=== PATIENT | male | born 1945 | race Caucasian/White ===

== ENCOUNTER → 2016-07-23 11:53 | Outpatient (CLI) | payer MEDICARE, OTHER ==
[2016-04-24 15:29] VITALS: BMI 48.8
[~2016-07-23 11:53] MED LIST: ACETAMINOPHEN500 M1 PO; ADIPEX-P37.5 M1 PO; ADVAIR HFA 230-12 GM INH; AMOXIL875 MG PO; ASCORBIC ACID500 MG PO; ASPIRIN EC81 M1 PO; ASPIRIN EC81 MG PO; BAYER CHEWABLE81 MG PO; BENADRYL INJ50 MG/ML IV; BENADRYL25 MG PO; BENICAR HCT 40-1 TA1 PO; BENICAR20 MG PO; BENICAR40 MG PO; CEFAZOLIN IV; CHLORASEPTIC177 ML TOPICAL; COLACE100 MG PO; CORDARONE200 MG PO; CRESTOR10 MG PO; CRESTOR20 MG PO; DULCOLAX10 MG/SUPP RC; ELIQUIS2.5 MG PO; HCTZ25 MG PO; HEMOCYTE PLUS1 CAP; HEMOCYTE PLUS1 CAP PO; HYDROCHLOROTHIA25 MG PO; HYDROCODONE-APA1 TAB PO; LEVAQUIN PREMI750 MG IV; LOPRESSOR25 MG PO; LYRICA75 MG PO; METANX; MIRALAX17 GM PO; MOBIC PO; MOBIC7.5 MG PO; MULTI-DAY VITAM1 TAB PO; MULTIPLE VITAMI1 TA1 PO; NEXIUM40 MG PO; NORCO 10/325 TA1 TA1 PO; OSTEO BI-FLEX; OSTEO BI-FLEX1 EAC1 PO; PERCOCET 10/3251 TA1 PO; PERCOCET 5-3251 TAB PO; POTASSIUM99 M1; PROAIR HFA8.5 GM INH; SALINE FLUSH10 ML IV; SENOKOT-S TABLE1 TAB PO; SINGULAIR10 MG PO; SUPER B COMPLE150 MG PO; SYNTHROID25 MCG PO; TUMS500 MG PO; VANCOMYCIN H1 G/VIA1 IV; VIBRAMYCIN 100100 MG PO; VITAMIN B COMPL1 TA1 PO; VYBRID; ZOFRAN4 MG PO; [UNRECOGNIZED DRUG - OTHER] IV
[2016-07-23 12:21] LABS: WBC 10.3 10x3/uL (4.8-10.8)
[2016-07-23 13:35] LABS: ERYTHROCYTE SEDIMENTATION RATE 41 mm/hr (0-20)
== END | disposition home or self-care (01) ==
LOC: D.LAB 11:53
PROVIDERS: Orthopaedic Surgery
DX: T84.84XA Pain due to internal orthopedic prosthetic devices, implants and grafts, initial encounter (principal)

== ENCOUNTER 2016-08-01 08:09 | Day surgery (SDC) | payer MEDICARE, OTHER ==
[~2016-08-01] VITALS: Ht 177.8 cm; Wt 145.1 kg
[~2016-08-01 08:09] MED LIST changes: -HYDROCODONE-APA1 TAB PO; -VYBRID
[2016-08-01 09:17] LABS: HEMOGLOBIN 11.2 g/dL (13.5-17.5); MCH 27.7 pg (26.0-34.0); MCHC 31.1 g/dL (31.0-37.0); MCV 88.9 fL (80.0-100.0); MEAN PLATELET VOLUME 10.3 fL (7.4-10.4); RBC 4.05 10x6/uL (4.20-6.10); RDW 13.9 % (11.5-14.5); WBC 7.6 10x3/uL (4.8-10.8)
[2016-08-01] MEDS ORDERED: HYDROCODONE-APA1 TAB PO (09:29)
[2016-08-01] MEDS ORDERED: VYBRID (09:30)
[2016-08-01 09:31] VITALS: BP 117/55; Ht 177.8 cm; Wt 145.1 kg
[2016-08-01 09:34] LABS: ANION GAP 11.9 mmol/L (8-16); CARBON DIOXIDE 28.2 mmol/L (21.0-32.0); CREATININE - SERUM 1.2 mg/dL (0.6-1.3); POTASSIUM - SERUM 4.1 mmol/L (3.5-5.1)
[2016-08-01 13:13] LABS: LYMPH - BF 3 %; MACROPHAGES BF 2 %; NEUT - BF 95 %
[2016-08-01 13:38] LABS: PROTEIN - BODY FLUID 5.1 G/DL
--- NOTE | 2016-08-01 14:09 | NUR ---
1145 IV DC WITH CATHER TIP INTACT
--- NOTE | 2016-08-02 14:00 | OP ---
PATIENT NAME: GRECIA MARTINEZ MEDICAL RECORD: [id number] :49 LOCATION:[facility] ADMISSION DATE: SURGEON: PARMJIT MCKINLEY MD DATE OF OPERATION: 08/01/2016 PREOPERATIVE DIAGNOSIS: Painful swollen right knee, status post total knee arthroplasty. POSTOPERATIVE DIAGNOSIS: Painful swollen right knee, status post total knee arthroplasty. PROCEDURE: Aspiration of the right knee under fluoroscopy and TIVA anesthesia. SURGEON: Parmjit Mckinley MD. ANESTHESIA: TIVA. INTRAOPERATIVE COMPLICATIONS: None. OPERATIVE SUMMARY IN DETAIL: After obtaining the appropriate orthopedic surgery consent, as well as anesthetic consultation, evaluation and clearance, the patient was brought to the operating room and placed on the operating table in supine position. After adequate TIVA anesthesia was administered, the right knee was prepped and draped in a routine sterile fashion. An 18-gauge needle was directed into the superior lateral aspect of the knee under fluoroscopy. Approximately 30 mL of cloudy synovial fluid returned. This was then sent for Gram stain, aerobic and anaerobic cultures as well as synovial fluid analysis. Bandage was applied. The patient returned to outpatient in stable condition. TRANSINT:[id number] Voice Confirmation ID: [id number] DOCUMENT ID: [id number] PARMJIT MCKINLEY MD at 1400 CC: [id number] DICTATION DATE: 08/01/16 111 GARAGE DOOR TECHNICIAN: 08/01/16 1713 [facility] 08/01/16 [facility] [address] [place] [address]
== END 2016-08-01 13:00 | disposition home or self-care (01) ==
LOC: D.OPS 08:09
PROVIDERS: Anesthesiology; Orthopaedic Surgery
DX: M25.461 Effusion, right knee (principal); M25.561 Pain in right knee; Z96.651 Presence of right artificial knee joint

== ENCOUNTER 2017-05-24 12:04 | Inpatient (IN) | payer MEDICARE, OTHER ==
[~2017-05-24] VITALS: Ht 177.8 cm; Wt 155.6 kg
[~2017-05-24 12:04] MED LIST changes: +HYDROCODONE-APA1 TAB PO; +VYBRID
[2017-05-24 13:05] LABS: BASOPHILS 0.1 % (0-2); EOSINOPHILS 0.8 % (0-7); HEMATOCRIT 39.1 % (42.0-54.0); HEMOGLOBIN 12.2 g/dL (13.5-17.5); IMMATURE GRANULOCYTES 0.2 % (0-5); MCH 28.1 pg (26.0-34.0); MCHC 31.2 g/dL (31.0-37.0); MCV 90.1 fL (80.0-100.0); MEAN PLATELET VOLUME 9.4 fL (7.4-10.4); MONOCYTES 6.7 % (2-11); NEUTROPHILS 82.2 % (40-80); RBC 4.34 10x6/uL (4.20-6.10); RDW 13.9 % (11.5-14.5); WBC 10.6 10x3/uL (4.8-10.8)
[2017-05-24 13:16] LABS: ALBUMIN 3.5 g/dL (3.4-5.0); ANION GAP 10.3 mmol/L (8-16); BILIRUBIN - TOTAL 1.43 mg/dL (0.2-1.3); CALCIUM 9.2 mg/dL (8.5-10.1); CARBON DIOXIDE 30.4 mmol/L (21.0-32.0); CREATININE - SERUM 1.2 mg/dL (0.6-1.3); POTASSIUM - SERUM 3.7 mmol/L (3.5-5.1); PROTEIN - SERUM 8.1 g/dL (6.4-8.2)
[2017-05-24 13:17] LABS: PLATELET COUNT 301 10x3/uL (130-400)
[2017-05-24 13:20] LABS: TROPONIN-I 0.037 ng/mL (0.000-0.060)
[2017-05-24 13:59] LABS: AMYLASE - SERUM 28 U/L (25-115); LIPASE 121 U/L (73-393); PRO BNP 3878 pg/mL (0-125)
--- NOTE | 2017-05-24 15:32 | NUR ---
RECEIVED FROM FROM NILES IN ER. STATES PATIENT HAS NOT BEEN GIVEN ANY MEDS IN THE ER & VS ARE STABLE. ADVISED PTS ROOM IS READY. WILL SEND PATIENT TO FLOOR.
--- NOTE | 2017-05-24 16:05 | NUR ---
RECEIVED PATIENT VIA STRETCHER FROM ER. TRANSFERED TO BEDSIDE CHAIR. HE IS ORIENTED AND ALERT. THERE IS A 20G IV IN HIS LEFT AC, SALINE LOCKED WITH DRESSING INTACT. ADMITTING HISTORY DONE WITH PATIENT. VERIFIED MED LIST WITH PATIENT. VS STABLE AT THIS TIME. PUT PATIENT ON TELEMETRY. ORDERED MEDS GIVEN; LASIX & NITRO. CALL LIGHT IN REACH. WILL CONTINUE TO MONITOR. CPOC.
[2017-05-24 16:53] VITALS: BMI 48.8
[2017-05-24] MEDS ORDERED: PROAIR HFA8.5 GM INH (16:59)
--- NOTE | 2017-05-24 17:00 | NUR ---
PATIENT SITTING UP IN CHAIR. ADMISSION ASSESSMENT DONE. PATIENT DENIES ANY NEEDS OR PAIN AT THIS TIME. CPOC
--- NOTE | 2017-05-24 18:40 | NUR ---
EVENING ROUNDS MADE. PATIENT SITTING IN CHAIR AT BEDSIDE. DENIES ANY NEEDS AT THIS TIME. CALL LIGHT IN REACH. INSTRUCTED TO USE CALL LIGHT IF NEEDED. CPOC.
[2017-05-24 21:02] VITALS: BP 110/74
--- NOTE | 2017-05-24 22:16 | NUR ---
INITIAL ROUNDS COMPLETED 1T 1920 HRS. PT DENIED ANY DISCOMFORT PT SITTING IN THE RECLINER. ASSESSMENT COMPELTEDA T 2020 HRS. VSS. SR PER CM HR 74. IV TO RAC SL. LUNGS DIMINISHED IN BASES BILAT. 2-3+ PITTING EDEMA TO BILAT KNEES NOTED. PT DENIED ANY DISCOMFORT. PT CURRENTLY WATCHING TV IN RECLINES. DENIES ANY DISCOMFORT. WILL CONTINUE TO MONITOR. CALL LIGHT WITHIN REACH.
--- NOTE | 2017-05-24 23:51 | NUR ---
BP IN 170'S. PT STATES HAS BAD STERN. NITRO PASTE REMOVED. WILL REASESS IN 30 MINUTES.
[2017-05-25 00:19] VITALS: BP 175/79
--- NOTE | 2017-05-25 00:25 | NUR ---
PT RESTING WITH EYES CLOSED. RESP EVEN AND REGULAR. SR UP X2, CALL LIGHT WITHIN REACH.
--- NOTE | 2017-05-25 02:15 | NUR ---
PT RESTING WITH EYES CLOSED. RESP EVEN AND REGULAR. SR UP X2, CALL LIGHT WITHIN REACH.
--- NOTE | 2017-05-25 04:45 | NUR ---
PT AWAKE; DENIES ANY DISCOMFORT. WILL CONTINUE TO MONITOR.
[2017-05-25 05:16] VITALS: BP 162/70
--- NOTE | 2017-05-25 06:36 | NUR ---
VSS THIS AM. PT DENIES ANY DISCOMFORT. NEEDS MET; WILL CONTINUE TO MONITOR.
--- NOTE | 2017-05-25 07:15 | NUR ---
REPORT RECEIVED. MORINING ROUNDS MADE. PATIENT RESTING IN BED. EMPTIED 700ML OF LIGHT YELLOW URINE FROM URINAL. PT VOIDED AN ADDITIONAL 750ML OF LIGHT YELLOW URINE. DENIES ANY NEEDS AT THIS TIME. VSS. WILL CONTINUE TO MONITOR. CPOC.
[2017-05-25 08:43] LABS: BASOPHILS 0.1 % (0-2); EOSINOPHILS 2.1 % (0-7); HEMATOCRIT 38.1 % (42.0-54.0); HEMOGLOBIN 11.9 g/dL (13.5-17.5); IMMATURE GRANULOCYTES 0.2 % (0-5); LYMPHOCYTES 13.1 % (15-50); MCH 28.3 pg (26.0-34.0); MCHC 31.2 g/dL (31.0-37.0); MCV 90.5 fL (80.0-100.0); MEAN PLATELET VOLUME 9.5 fL (7.4-10.4); MONOCYTES 9.1 % (2-11); NEUTROPHILS 75.4 % (40-80); PLATELET COUNT 296 10x3/uL (130-400); RBC 4.21 10x6/uL (4.20-6.10); RDW 14.1 % (11.5-14.5); WBC 8.7 10x3/uL (4.8-10.8)
[2017-05-25 08:49] LABS: ANION GAP 12.2 mmol/L (8-16); CARBON DIOXIDE 32.8 mmol/L (21.0-32.0); CREATININE - SERUM 1.3 mg/dL (0.6-1.3)
--- NOTE | 2017-05-25 11:16 | NUR ---
PATIENT IS RESTING, DENIES ANY NEEDS. BED LOW AND LOCKED. CPOC
[2017-05-25 11:42] VITALS: BP 148/75
--- NOTE | 2017-05-25 14:26 | NUR ---
PATIENT STANDING AT BEDSIDE. ASKED HOW HE WAS DOING, STATES "I'M BUSY". INFORMED I HAD HIS LASIX, ASKED IF I COULD COME BACK IN "A LITTLE BIT". TOLD HIM THAT WAS NOT A PROBLEM. WILL CHECK BACK WITH HIM SHORTLY. CPOC.
--- NOTE | 2017-05-25 15:30 | NUR ---
SPOKE WITH DR. ADORNO AND ADVISED PATIENT NEEDS HIS HOME MEDS RESTARTED. VOICED UNDERSTANDING.
[2017-05-25 16:07] VITALS: BP 149/66
--- NOTE | 2017-05-25 19:17 | NUR ---
EVENING ROUNDS MADE. PATIENT SITTING IN CHAIR AT BEDSIDE. DENIES ANY NEEDS AT THIS TIME. CALL LIGHT IN REACH. CPOC.
[2017-05-25 20:00] VITALS: BP 125/68
--- NOTE | 2017-05-25 21:44 | NUR ---
INITIAL ROUNDS COMPLETED AT 1920 HRS. PT DENIED ANY DISCOMFORT. ASSESSMENT COMPELTED AT 1954 HRS. VSS. SR PER CM HR 72. LUNGS DIMINISHED IN BASES BILAT. 2+ EDEMA NOTED TO KNEES. PM MEDS GIVEN PER ORDERS. PT CURRENTLY WATCHING TV. WILL CONTINUE TO MONITOR. SR UP X2, CALL LIGHT WITHIN REACH.
[2017-05-26] VITALS: BP 152/63
--- NOTE | 2017-05-26 00:02 | NUR ---
PT AWAKE; DENIES ANY DISCOMFORT. WILL CONTINUE TO MONITOR.
--- NOTE | 2017-05-26 02:48 | NUR ---
PT RESTING WITH EYES CLOSED. RESP EVEN AND REGULAR. SR UP X2, CALL LIGHT WITHIN REACH.
[2017-05-26 04:00] VITALS: BP 157/69
--- NOTE | 2017-05-26 04:26 | NUR ---
PT RESTING WITH EYES CLOSED. RESP EVEN AND REGULAR. SR UP X2,CALL LIGHT WITHIN REACH.
[2017-05-26 06:07] LABS: BASOPHILS 0.1 % (0-2); EOSINOPHILS 2.3 % (0-7); HEMATOCRIT 39.8 % (42.0-54.0); HEMOGLOBIN 12.3 g/dL (13.5-17.5); IMMATURE GRANULOCYTES 0.2 % (0-5); MCH 27.8 pg (26.0-34.0); MCHC 30.9 g/dL (31.0-37.0); MONOCYTES 9.9 % (2-11); NEUTROPHILS 73.5 % (40-80); PLATELET COUNT 319 10x3/uL (130-400); RBC 4.42 10x6/uL (4.20-6.10); RDW 14.1 % (11.5-14.5); WBC 9.8 10x3/uL (4.8-10.8)
--- NOTE | 2017-05-26 06:24 | NUR ---
VSS THROUGHOUT NIGHT. SR PER CM. PT DENIED ANY DISCOMFORT. NEEDS MET; WILL CONTINUE TO MONITOR.
[2017-05-26 06:36] LABS: ALBUMIN 3.3 g/dL (3.4-5.0); ANION GAP 9.9 mmol/L (8-16); BILIRUBIN - TOTAL 1.4 mg/dL (0.2-1.3); CALCIUM 9.6 mg/dL (8.5-10.1); CARBON DIOXIDE 34.6 mmol/L (21.0-32.0); CREATININE - SERUM 1.2 mg/dL (0.6-1.3); POTASSIUM - SERUM 3.5 mmol/L (3.5-5.1); PROTEIN - SERUM 7.6 g/dL (6.4-8.2)
--- NOTE | 2017-05-26 07:15 | NUR ---
RECIEVED REPORT ON PATIENT. PATIENT IS SLEEPING AT THIS TIME, NAD NOTED AT THIS TIME, CHEST RISES AND FALLS EQUALLY. PATIENT HAS A R AC IV THAT IS SL AT THIS TIME. BED IS LOW AND LOCKED, CALL LIGHT IN REACH. CPOC
--- NOTE | 2017-05-26 08:17 | CN ---
PATIENT NAME:GRECIA MARTINEZ MEDICAL RECORD: [id number] : 49 LOCATION:[facility].2132 ADMIT DATE: 05/25/17 ACCOUNT: [id number] CONSULTING PHYSICIAN: KLEVER COFFEY MD REFERRING PHYSICIAN: SHYLA ADORNO MD DATE OF CONSULTATION: 05/25/2017 HISTORY OF PRESENT ILLNESS: A 71-year-old gentleman with cardiovascular history. He has history of aortic valve disease, status post AVR, tissue type back in 2012. He has history of hypertension. He has baseline dyspnea on exertion, reports 2-3 day history of progressive dyspnea on exertion. He had been at [employer], perhaps dietary indiscretion. He has been taking his medications. He presented to the ER. He had elevated BNP. Last echocardiographic study one month ago showed normal functioning prosthetic valve, normal LV function, responded nicely to diuretics. We are asked to see him concerning his cardiovascular status. PAST MEDICAL HISTORY: 1. History of hypertension. 2. Dyslipidemia. 3. Hypothyroidism, on replacement. 4. Gastroesophageal reflux disease. ALLERGIES: POLLEN EXTRACTS, DOG DANDER. No drug allergies. MEDICATIONS: Include; 1. Lopressor 50 b.i.d. 2. Benicar 20 daily. 3. Crestor 10 daily. 4. Aspirin 81 daily. 5. Lyrica 75 daily. 6. Nexium 40 daily. 7. Synthroid 25 mcg daily. SOCIAL HISTORY: He is a nonsmoker. He is able to take care of his ADLs, stays quite active. No set exercise program. REVIEW OF SYSTEMS: The patient reports easy bruising but reports no swollen glands. The patient reports no fever, no night sweats, no significant weight gain, no significant weight loss. No significant exercise tolerance. The patient reports no dry eyes, no irritation, no vision change. Patient reports no difficulty hearing and no ear pain. Patient reports no frequent nose bleeds or nose and sinus problems. Patient reports on arm pain on exertion. No shortness of breath while lying down. No history of heart murmur. Patient reports no cough, no wheezing or coughing up blood. Patient reports no abdominal pain, no vomiting. Normal appetite. No diarrhea and not vomiting blood. No nausea and no constipation. Patient reports no incontinence. No difficulty urinating. No hematuria. No increased frequency. Patient reports no muscle aches. No weakness, no arthralgias, no back pain. No swelling of the extremities. Patient reports no abnormal mole, no jaundice, no rashes. Reports no loss of consciousness. No weakness and no numbness. No seizures, dizziness, or headaches. The patient reports no depression, no sleep disturbance, feeling safe in a relationship and no alcohol abuse. Patient reports on fatigue. Reports no runny nose or sinus pressure. No itching, no hives, and no frequent sneezing. CONSULT REPORT [id number] GRECIA MARTINEZ PHYSICAL EXAMINATION: GENERAL: Pleasant gentleman, in no acute distress. VITAL SIGNS: Blood pressure 160/70, pulse 89 and regular. HEENT: Normocephalic, atraumatic. NECK: No bruits noted. HEART: Regular, probable S4 gallop is noted. LUNGS: Prolonged expiratory phase, few wheezes. ABDOMEN: Soft, nontender. EXTREMITIES: A 1+ edema, 1+ pulses. NEUROLOGIC: Grossly intact. DIAGNOSTIC DATA: ECG shows LVH with secondary ST-T changes. IMPRESSION: Volume overload. This may be secondary to dietary indiscretion at [employer], etc. I agree with current management. Given infrequent episodes of volume overload, might could even treat this with p.r.n. diuretic currently since LV function remains normal. Further recommendations based on above. TRANSINT:[id number] Voice Confirmation ID: [id number] DOCUMENT ID: [id number] KLEVER COFFEY MD at 0817 CC: [id number] DICTATION DATE: 05/25/17 0938 BUSINESS AGENT: 05/25/17 1222 ADM IN [place] [id number] [place] [id number]
[2017-05-26 08:18] VITALS: BP 160/72
--- NOTE | 2017-05-26 09:15 | NUR ---
MORNING MEDICATIONS GIVEN, NO ISSUES. PATIENT SITTING IN CHAIR. CPOC
--- NOTE | 2017-05-26 11:15 | NUR ---
PATIENT RESTING, DENIES ANY NEEDS OR PAIN AT THIS TIME. CPOC
[2017-05-26 12:27] VITALS: BP 145/65
[2017-05-26 13:24] VITALS: Ht 177.8 cm; Wt 155.6 kg
[2017-05-26] MEDS ORDERED: HYDROCHLOROTHIA25 MG PO (14:09)
--- NOTE | 2017-05-26 14:11 | NUR ---
PATIENT SITTING UP IN CHAIR, RESTING DENIES ANY NEEDS. WAITING ON DC PAPERWORK. CPOC
--- NOTE | 2017-05-26 15:24 | NUR ---
PATIENT RESTING, AROUSES TO VOICE. DENIES ANY NEEDS. CPOC
--- NOTE | 2017-05-26 15:53 | NUR ---
Patient Name: GRECIA MARTINEZ Admission Status: ER Accout number: [id number] Admission Date: 05-25-2017 : 1945 Admission Diagnosis: Attending: SHYLA ADORNO Current LOS: 1 Anticipated DC Date: 05-26-2017 Planned Disposition: Home Primary Insurance: MEDICARE A & B Discharge Planning Comments: * Is the patient Alert and Oriented? Yes 0 * How many steps to enter\\exit or inside your home? 2-O / 13-I 0 * PCP DR. JUNIOR 0 * Pharmacy [facility] MA[facility] ORDER 0 * Preadmission Environment Home with Family 0 * ADLs Independent 0 * Equipment Cane Walker Wheelchair 0 * Other Equipment NO MEDICAL EQUIPMENT PROVIDER PREFERENCE 0 * List name and contact numbers for known caregivers / representatives who currently or will assist patient after discharge: LISANDRO MARTINEZ, SPOUSE, 0 * Community resources currently utilized None 0 * Please name any agencies selected above. NONE 0 * Additional services required to return to the preadmission environment? No 0 * Can the patient safely return to the preadmission environment? Yes 0 * Has this patient been hospitalized within the prior 30 days at any hospital? No 0 CM MET WITH PT IN ROOM TO DISCUSS DISCHARGE PLANNING AND NEEDS. PT REPORTS LIVING AT HOME INDEPENDENTLY WITH SPOUSE. PT HAS A CANE THAT HE USES AND A WALKER AND WHEELCHAIR THAT HE DOES NOT USE. PT HAS NO MEDICAL EQUIPMENT PROVIDER PREFERENCE. PT HAS NO OUTSIDE SERVICES ASSISTING IN THE HOME. CM DISCUSSED AVAILABILITY OF HOME HEALTH, REHAB SERVICES AND MEDICAL EQUIPMENT. PT PLANS TO GO TO THE "[facility]" IMMEDIATELY AFTER GETTING HOME; PT DENIES DISCHARGE NEEDS, REPORTS HIS SPOUSE WILL PICK HIM UP FOR DISCHARGE HOME. IMPORTANT MESSAGE FROM MEDICARE PROVIDED AND EXPLAINED. Enterostomal Nurse: Ziggy Vega
--- NOTE | 2017-05-26 16:30 | NUR ---
patient given dc instructions. iv dc with cath tip intact. patient denies any questions. patient ride here. patient gone for dc
[2017-05-26 16:38] VITALS: BP 134/76
== END 2017-05-26 17:01 | disposition home or self-care (01) | DRG 292 ==
LOC: D.ER 12:04 → OBSVTIME 14:33 → D.M2 14:33
PROVIDERS: Family Medicine; ADMIT Family Medicine
DX: I11.0 Hypertensive heart disease with heart failure (principal); Z68.42 Body mass index [BMI] 45.0-49.9, adult; I50.9 Heart failure, unspecified; E78.5 Hyperlipidemia, unspecified; E03.9 Hypothyroidism, unspecified; K21.9 Gastro-esophageal reflux disease without esophagitis; G47.33 Obstructive sleep apnea (adult) (pediatric); I25.10 Atherosclerotic heart disease of native coronary artery without angina pectoris; D64.9 Anemia, unspecified; Z95.2 Presence of prosthetic heart valve; Z87.891 Personal history of nicotine dependence; E66.01 Morbid (severe) obesity due to excess calories

== ENCOUNTER 2017-07-04 06:00 | Outpatient (CLI) | payer MEDICARE, OTHER ==
[2017-05-26 13:24] VITALS: BMI 49.2
[2017-07-04 12:58] LABS: HEMATOCRIT 40.5 % (42.0-54.0); HEMOGLOBIN 12.5 g/dL (13.5-17.5); MCH 27.5 pg (26.0-34.0); MCHC 30.9 g/dL (31.0-37.0); MCV 89.2 fL (80.0-100.0); MEAN PLATELET VOLUME 9.9 fL (7.4-10.4); RBC 4.54 10x6/uL (4.20-6.10); RDW 14.2 % (11.5-14.5)
== END 2017-07-04 23:59 | disposition home or self-care (01) ==
LOC: D.OPS 06:00 → EDSTATUS 07-07 09:00 → D.PAN 07-07 09:00 → D.OPS 07-07 09:00
PROVIDERS: Anesthesiology
DX: T84.84XA Pain due to internal orthopedic prosthetic devices, implants and grafts, initial encounter (principal); Z01.810 Encounter for preprocedural cardiovascular examination; Z01.811 Encounter for preprocedural respiratory examination; Z01.812 Encounter for preprocedural laboratory examination; Z53.9 Procedure and treatment not carried out, unspecified reason

== ENCOUNTER 2017-07-17 06:45 | Day surgery (SDC) | payer MEDICARE, OTHER ==
[~2017-07-17] VITALS: Ht 177.8 cm; Wt 147.0 kg
--- NOTE | ~2017-07-17 | OP ---
PATIENT NAME: GRECIA ESPINAL MEDICAL RECORD: [id number] :49 LOCATION:[facility] ADMISSION DATE: SURGEON: PARMJIT MCKINLEY MD DATE OF OPERATION: 07/17/2017 DATE OF OPERATION: 07/17/2017 PREOPERATIVE DIAGNOSIS: Painful total knee arthroplasty of the right. POSTOPERATIVE DIAGNOSIS: Painful total knee arthroplasty of the right. PROCEDURE: Arthroscopic debridement, synovectomy with aspiration. SURGEON: Parmjit Mckinley MD ANESTHESIA: General. INTRAOPERATIVE COMPLICATIONS: None. SUMMARY OF PATHOLOGIC FINDINGS: The patient again had this arthroscopy as his last arthroscopy was found to have substantial synovitis, did not appear to be infectious. INDICATIONS: Mr. Espinal is a 71-year-old gentleman who underwent total knee arthroplasty which subsequently got infected. After 6 weeks of antibiotic spacer, his knee was replanted with a revision total knee arthroplasty. Approximately 2 years after that, he came in with severe significant pain, the decision at that time was to do arthroscopy, synovectomy and check aspiration. At his index arthroscopy nothing ever grew and the patient did extremely well for approximately 2 years. He presented back with swelling and pain again. Again, synovectomy was performed and cultures were taken. OPERATIVE SUMMARY IN DETAIL: After obtaining the appropriate preoperative orthopedic surgery consent as well as anesthetic consultation, evaluation, and clearance, the patient was brought to the operating room and placed on the operating table in supine position. After adequate general laryngeal mask airway was administered, tourniquet was placed about the proximal aspect of the right lower extremity. Right lower extremity was then prepped and draped in the routine sterile fashion. The leg was elevated and exsanguinated, tourniquet inflated to 350 mmHg. Routine inferolateral portal was established followed by superolateral portal and inferomedial portal. Diagnostic arthroscopy at the end showed substantial synovitis. The synovial fluid was slightly turbid. This was sent for synovial fluid analysis as well as Gram-stain, aerobic and anaerobic culture. At this point, a 5.0 resector was utilized to perform a synovectomy in the popliteal recess, medial and lateral gutters as well as circumferentially about the pelvis. All areas of synovitis were removed and then copious amounts of water simply 12 liters in total were irrigated through the knee while slightly flexing and extending the knee for a good irrigation. Having completed this, arthroscopy portals were closed in routine interrupted fashion using 4-0 Prolene. Tourniquet was deflated. Please note, the knee was insufflated with 30 cc of 0.25% Marcaine plain. Sterile dressings were applied. The patient was awakened and taken to the recovery room in stable condition. All final needle and sponge counts were correct. TRANSINT:[id number] Voice Confirmation ID: [id number] DOCUMENT ID: [id number] OPERATIVE REPORT [id number] GRECIA ESPINAL MD, PARMJIT MYERS at 1436 CC: [id number] DICTATION DATE: 07/17/17 0947 DIRECTOR OF GUIDANCE: 07/17/17 1228 [facility] 07/17/17 [place] [address] [place] [address]
[2017-07-17] MEDS ORDERED: VIIBRYD20 MG PO (07:53)
[2017-07-17 07:57] VITALS: BP 128/55; Ht 177.8 cm; Wt 147.0 kg
[2017-07-17] MEDS ORDERED: PERCOCET 10/3251 TA1 PO (09:38)
== END 2017-07-17 11:30 | disposition home or self-care (01) ==
LOC: D.OPS 06:45 → D.PAN 10:45 → D.OPS 10:45
DX: M25.561 Pain in right knee (principal); Z96.659 Presence of unspecified artificial knee joint; J45.909 Unspecified asthma, uncomplicated; I10 Essential (primary) hypertension; E03.9 Hypothyroidism, unspecified; K21.9 Gastro-esophageal reflux disease without esophagitis; E66.01 Morbid (severe) obesity due to excess calories; Z68.42 Body mass index [BMI] 45.0-49.9, adult

== ENCOUNTER → 2017-08-14 07:41 | Outpatient (CLI) | payer MEDICARE, OTHER ==
[2017-07-17 07:57] VITALS: BMI 46.5
[~2017-08-14 07:41] MED LIST changes: +VIIBRYD20 MG PO
== END | disposition home or self-care (01) ==
LOC: D.NM 07:41
DX: M25.561 Pain in right knee (principal)

== ENCOUNTER → 2017-09-11 06:47 | Outpatient (CLI) | payer MEDICARE, OTHER ==
[2017-07-17 07:57] VITALS: BMI 46.5
== END | disposition home or self-care (01) ==
LOC: D.NM 06:47
DX: Z96.659 Presence of unspecified artificial knee joint (principal)

== ENCOUNTER → 2017-11-24 17:49 | Outpatient (CLI) | payer MEDICARE, OTHER ==
[2017-07-17 07:57] VITALS: BMI 46.5
[2017-11-24 18:09] LABS: BASOPHILS 0.3 % (0-2); EOSINOPHILS 1.8 % (0-7); HEMOGLOBIN 9.7 g/dL (13.5-17.5); IMMATURE GRANULOCYTES 0.5 % (0-5); LYMPHOCYTES 15.2 % (15-50); MCH 29.1 pg (26.0-34.0); MCHC 31.3 g/dL (31.0-37.0); MCV 93.1 fL (80.0-100.0); MEAN PLATELET VOLUME 10.3 fL (7.4-10.4); MONOCYTES 7.7 % (2-11); NEUTROPHILS 74.5 % (40-80); PLATELET COUNT 275 10x3/uL (130-400); RBC 3.33 10x6/uL (4.20-6.10); RDW 13.7 % (11.5-14.5); WBC 7.8 10x3/uL (4.8-10.8)
[2017-11-24 19:22] LABS: ERYTHROCYTE SEDIMENTATION RATE 39 mm/hr (0-20)
[2017-11-24 19:23] LABS: ALBUMIN 3.2 g/dL (3.4-5.0); ANION GAP 13.7 mmol/L (8-16); BILIRUBIN - TOTAL 0.5 mg/dL (0.2-1.3); CALCIUM 9.1 mg/dL (8.5-10.1); CARBON DIOXIDE 30.4 mmol/L (21.0-32.0); CREATININE - SERUM 1.1 mg/dL (0.6-1.3); POTASSIUM - SERUM 4.1 mmol/L (3.5-5.1); PROTEIN - SERUM 6.9 g/dL (6.4-8.2); VANCOMYCIN - TROUGH 9.2 ug/mL (10.0-20.0)
== END | disposition home or self-care (01) ==
LOC: D.LABREF 17:49
PROVIDERS: Emergency Medicine
DX: T85.43XA Leakage of breast prosthesis and implant, initial encounter (principal)

== ENCOUNTER → 2017-11-27 12:47 | Outpatient (CLI) | payer MEDICARE, OTHER ==
[2017-07-17 07:57] VITALS: BMI 46.5
[2017-11-27 14:13] LABS: BASOPHILS 0.1 % (0-2); EOSINOPHILS 2.1 % (0-7); HEMATOCRIT 34.7 % (42.0-54.0); HEMOGLOBIN 10.9 g/dL (13.5-17.5); IMMATURE GRANULOCYTES 0.3 % (0-5); LYMPHOCYTES 15.4 % (15-50); MCHC 31.4 g/dL (31.0-37.0); MCV 92.3 fL (80.0-100.0); MEAN PLATELET VOLUME 10.6 fL (7.4-10.4); MONOCYTES 9.3 % (2-11); NEUTROPHILS 72.8 % (40-80); PLATELET COUNT 271 10x3/uL (130-400); RBC 3.76 10x6/uL (4.20-6.10)
[2017-11-27 14:29] LABS: ALBUMIN 3.3 g/dL (3.4-5.0); ALKALINE PHOSPHATASE 143 U/L (46-116); ALT (SGPT) 33 U/L (10-68); CALC OSMOLALITY 290 mosm/kg (275-300); CALCIUM 9.2 mg/dL (8.5-10.1); CARBON DIOXIDE 28.5 mmol/L (21.0-32.0); CHLORIDE - SERUM 107 mmol/L (98-107); CREATININE - SERUM 1.2 mg/dL (0.6-1.3); GLUCOSE 102 mg/dL (74-106); POTASSIUM - SERUM 4.1 mmol/L (3.5-5.1); PROTEIN - SERUM 6.8 g/dL (6.4-8.2); SODIUM 145 mmol/L (136-145); UREA NITROGEN 19 mg/dL (7-18); VANCOMYCIN - TROUGH 10.8 ug/mL (10.0-20.0); eGFR NON AFRICAN AMERICAN 64 mL/min (90-120)
[2017-11-27 14:31] LABS: C-REACTIVE PROTEIN < 0.2 mg/dL (0.0-0.9)
[2017-11-27 15:20] LABS: ERYTHROCYTE SEDIMENTATION RATE 40 mm/hr (0-20)
== END | disposition home or self-care (01) ==
LOC: D.LABREF 12:47
PROVIDERS: Emergency Medicine
DX: T84.50XA Infection and inflammatory reaction due to unspecified internal joint prosthesis, initial encounter (principal)

== ENCOUNTER → 2017-12-01 12:21 | Outpatient (CLI) | payer MEDICARE, OTHER ==
[2017-07-17 07:57] VITALS: BMI 46.5
[2017-12-01 12:38] LABS: BASOPHILS 0.1 % (0-2); EOSINOPHILS 2.1 % (0-7); HEMATOCRIT 31.8 % (42.0-54.0); HEMOGLOBIN 10.1 g/dL (13.5-17.5); IMMATURE GRANULOCYTES 0.2 % (0-5); LYMPHOCYTES 15.5 % (15-50); MCHC 31.8 g/dL (31.0-37.0); MCV 91.4 fL (80.0-100.0); MEAN PLATELET VOLUME 10.9 fL (7.4-10.4); MONOCYTES 8.3 % (2-11); NEUTROPHILS 73.8 % (40-80); PLATELET COUNT 236 10x3/uL (130-400); RBC 3.48 10x6/uL (4.20-6.10); RDW 14.5 % (11.5-14.5); WBC 8.2 10x3/uL (4.8-10.8)
[2017-12-01 12:57] LABS: ALBUMIN 3.4 g/dL (3.4-5.0); ANION GAP 12.8 mmol/L (8-16); BILIRUBIN - TOTAL 0.76 mg/dL (0.2-1.3); C-REACTIVE PROTEIN 0.4 mg/dL (0.0-0.9); CALCIUM 9.1 mg/dL (8.5-10.1); CARBON DIOXIDE 29.4 mmol/L (21.0-32.0); CREATININE - SERUM 1.4 mg/dL (0.6-1.3); POTASSIUM - SERUM 4.2 mmol/L (3.5-5.1); VANCOMYCIN - TROUGH 11.2 ug/mL (10.0-20.0)
[2017-12-01 13:43] LABS: ERYTHROCYTE SEDIMENTATION RATE 41 mm/hr (0-20)
== END | disposition home or self-care (01) ==
LOC: D.LABREF 12:21
PROVIDERS: Emergency Medicine
DX: T84.50XA Infection and inflammatory reaction due to unspecified internal joint prosthesis, initial encounter (principal)

== ENCOUNTER → 2017-12-04 14:29 | Outpatient (CLI) | payer MEDICARE, OTHER ==
[2017-07-17 07:57] VITALS: BMI 46.5
[2017-12-04 15:45] LABS: BASOPHILS 0.1 % (0-2); EOSINOPHILS 2.6 % (0-7); HEMATOCRIT 31.7 % (42.0-54.0); HEMOGLOBIN 9.9 g/dL (13.5-17.5); IMMATURE GRANULOCYTES 0.1 % (0-5); LYMPHOCYTES 17.5 % (15-50); MCH 29.1 pg (26.0-34.0); MCHC 31.2 g/dL (31.0-37.0); MCV 93.2 fL (80.0-100.0); MEAN PLATELET VOLUME 11.3 fL (7.4-10.4); MONOCYTES 8.9 % (2-11); NEUTROPHILS 70.8 % (40-80); PLATELET COUNT 191 10x3/uL (130-400); RDW 14.9 % (11.5-14.5)
[2017-12-04 16:04] LABS: ALBUMIN 3.3 g/dL (3.4-5.0); ALKALINE PHOSPHATASE 118 U/L (46-116); ALT (SGPT) 20 U/L (10-68); CALC OSMOLALITY 284 mosm/kg (275-300); CALCIUM 8.8 mg/dL (8.5-10.1); CHLORIDE - SERUM 106 mmol/L (98-107); GLUCOSE 88 mg/dL (74-106); POTASSIUM - SERUM 3.9 mmol/L (3.5-5.1); PROTEIN - SERUM 6.6 g/dL (6.4-8.2); SODIUM 142 mmol/L (136-145); UREA NITROGEN 20 mg/dL (7-18); VANCOMYCIN - TROUGH 8.7 ug/mL (10.0-20.0); eGFR NON AFRICAN AMERICAN 78 mL/min (90-120)
[2017-12-04 16:45] LABS: ERYTHROCYTE SEDIMENTATION RATE 31 mm/hr (0-20)
== END | disposition home or self-care (01) ==
LOC: D.LABREF 14:29
PROVIDERS: Emergency Medicine
DX: T81.4XXA Infection following a procedure, initial encounter (principal)

== ENCOUNTER → 2017-12-08 13:17 | Outpatient (CLI) | payer MEDICARE, OTHER ==
[2017-07-17 07:57] VITALS: BMI 46.5
[2017-12-08 14:48] LABS: BASOPHILS 0.3 % (0-2); EOSINOPHILS 2.9 % (0-7); HEMOGLOBIN 10.2 g/dL (13.5-17.5); IMMATURE GRANULOCYTES 0.1 % (0-5); LYMPHOCYTES 17.8 % (15-50); MCH 28.7 pg (26.0-34.0); MCHC 30.9 g/dL (31.0-37.0); MCV 92.7 fL (80.0-100.0); MEAN PLATELET VOLUME 10.9 fL (7.4-10.4); MONOCYTES 10.3 % (2-11); NEUTROPHILS 68.6 % (40-80); PLATELET COUNT 208 10x3/uL (130-400); RBC 3.56 10x6/uL (4.20-6.10); RDW 14.7 % (11.5-14.5); WBC 6.9 10x3/uL (4.8-10.8)
[2017-12-08 15:05] LABS: ALBUMIN 3.2 g/dL (3.4-5.0); BILIRUBIN - TOTAL 0.46 mg/dL (0.2-1.3); C-REACTIVE PROTEIN 0.4 mg/dL (0.0-0.9); CALCIUM 9.1 mg/dL (8.5-10.1); CARBON DIOXIDE 30.1 mmol/L (21.0-32.0); CREATININE - SERUM 1.2 mg/dL (0.6-1.3); POTASSIUM - SERUM 4.1 mmol/L (3.5-5.1); PROTEIN - SERUM 6.7 g/dL (6.4-8.2); VANCOMYCIN - TROUGH 10.4 ug/mL (10.0-20.0)
[2017-12-08 15:51] LABS: ERYTHROCYTE SEDIMENTATION RATE 28 mm/hr (0-20)
== END | disposition home or self-care (01) ==
LOC: D.LABREF 13:17
PROVIDERS: Emergency Medicine
DX: T84.51XA Infection and inflammatory reaction due to internal right hip prosthesis, initial encounter (principal)

== ENCOUNTER → 2017-12-11 12:56 | Outpatient (CLI) | payer MEDICARE, OTHER ==
[2017-07-17 07:57] VITALS: BMI 46.5
[2017-12-11 13:42] LABS: BASOPHILS 0.1 % (0-2); EOSINOPHILS 2.8 % (0-7); HEMATOCRIT 32.6 % (42.0-54.0); HEMOGLOBIN 10.5 g/dL (13.5-17.5); IMMATURE GRANULOCYTES 0.1 % (0-5); LYMPHOCYTES 12.9 % (15-50); MCH 29.4 pg (26.0-34.0); MCHC 32.2 g/dL (31.0-37.0); MCV 91.3 fL (80.0-100.0); MEAN PLATELET VOLUME 10.5 fL (7.4-10.4); MONOCYTES 12.1 % (2-11); PLATELET COUNT 202 10x3/uL (130-400); RBC 3.57 10x6/uL (4.20-6.10); RDW 14.8 % (11.5-14.5); WBC 7.6 10x3/uL (4.8-10.8)
[2017-12-11 14:01] LABS: ALBUMIN 3.2 g/dL (3.4-5.0); BILIRUBIN - TOTAL 0.64 mg/dL (0.2-1.3); CALCIUM 8.5 mg/dL (8.5-10.1); CARBON DIOXIDE 26.1 mmol/L (21.0-32.0); CREATININE - SERUM 2.4 mg/dL (0.6-1.3); POTASSIUM - SERUM 4.1 mmol/L (3.5-5.1); PROTEIN - SERUM 6.5 g/dL (6.4-8.2); VANCOMYCIN - TROUGH 15.6 ug/mL (10.0-20.0)
[2017-12-11 14:59] LABS: ERYTHROCYTE SEDIMENTATION RATE 27 mm/hr (0-20)
== END | disposition home or self-care (01) ==
LOC: D.LABREF 12:56
PROVIDERS: Emergency Medicine
DX: S71.002A Unspecified open wound, left hip, initial encounter (principal); S71.001A Unspecified open wound, right hip, initial encounter; L08.9 Local infection of the skin and subcutaneous tissue, unspecified; X58.XXXA Exposure to other specified factors, initial encounter

== ENCOUNTER → 2017-12-15 16:35 | Outpatient (CLI) | payer MEDICARE, OTHER ==
[2017-07-17 07:57] VITALS: BMI 46.5
[2017-12-15 23:45] LABS: ALBUMIN 3.7 g/dL (3.4-5.0); ANION GAP 10.6 mmol/L (8-16); BILIRUBIN - TOTAL 0.17 mg/dL (0.2-1.3); C-REACTIVE PROTEIN 0.6 mg/dL (0.0-0.9); CREATININE - SERUM 1.9 mg/dL (0.6-1.3); POTASSIUM - SERUM 4.6 mmol/L (3.5-5.1); PROTEIN - SERUM 7.2 g/dL (6.4-8.2); VANCOMYCIN - TROUGH 18.4 ug/mL (10.0-20.0)
[2017-12-16 00:45] LABS: HEMATOCRIT 35.9 % (42.0-54.0); HEMOGLOBIN 11.2 g/dL (13.5-17.5); MCH 29.8 pg (26.0-34.0); MCHC 31.2 g/dL (31.0-37.0); MCV 95.5 fL (80.0-100.0); MEAN PLATELET VOLUME 10.5 fL (7.4-10.4); RBC 3.76 10x6/uL (4.20-6.10); RDW 15.4 % (11.5-14.5); WBC 8.5 10x3/uL (4.8-10.8)
[2017-12-16 00:48] LABS: PLATELET COUNT 281 10x3/uL (130-400)
[2017-12-16 01:00] LABS: ERYTHROCYTE SEDIMENTATION RATE 122 mm/hr (0-20)
[2017-12-16 01:25] LABS: BASOPHILS 2 % (0-2); LYMPHOCYTES 16 % (15-50); MONOCYTES 5 % (2-11); NEUTROPHILS 75 % (40-80); PLATELET ESTIMATE NORMAL
== END | disposition home or self-care (01) ==
LOC: D.LABREF 16:35
PROVIDERS: Emergency Medicine
DX: M00.9 Pyogenic arthritis, unspecified (principal)

== ENCOUNTER → 2017-12-18 13:11 | Outpatient (CLI) | payer MEDICARE, OTHER ==
[2017-07-17 07:57] VITALS: BMI 46.5
[2017-12-18 14:10] LABS: BASOPHILS 0.1 % (0-2); EOSINOPHILS 2.5 % (0-7); HEMATOCRIT 32.5 % (42.0-54.0); HEMOGLOBIN 10.2 g/dL (13.5-17.5); IMMATURE GRANULOCYTES 0.2 % (0-5); LYMPHOCYTES 10.2 % (15-50); MCH 29.5 pg (26.0-34.0); MCHC 31.4 g/dL (31.0-37.0); MCV 93.9 fL (80.0-100.0); MEAN PLATELET VOLUME 10.4 fL (7.4-10.4); MONOCYTES 8.7 % (2-11); NEUTROPHILS 78.3 % (40-80); RBC 3.46 10x6/uL (4.20-6.10); RDW 15.1 % (11.5-14.5); WBC 8.5 10x3/uL (4.8-10.8)
[2017-12-18 14:12] LABS: PLATELET COUNT 224 10x3/uL (130-400)
[2017-12-18 14:38] LABS: ALBUMIN 3.2 g/dL (3.4-5.0); ANION GAP 12.7 mmol/L (8-16); BILIRUBIN - TOTAL 0.38 mg/dL (0.2-1.3); CALCIUM 8.6 mg/dL (8.5-10.1); CREATININE - SERUM 1.9 mg/dL (0.6-1.3); POTASSIUM - SERUM 4.7 mmol/L (3.5-5.1); PROTEIN - SERUM 6.7 g/dL (6.4-8.2)
== END | disposition home or self-care (01) ==
LOC: D.LABREF 13:11
PROVIDERS: Emergency Medicine
DX: T84.51XA Infection and inflammatory reaction due to internal right hip prosthesis, initial encounter (principal)

== ENCOUNTER → 2018-03-02 12:44 | Outpatient (CLI) | payer MEDICARE, OTHER ==
[2017-07-17 07:57] VITALS: BMI 46.5
[2018-03-02 14:26] LABS: BASOPHILS 0.1 % (0-2); EOSINOPHILS 1.5 % (0-7); HEMATOCRIT 29.7 % (42.0-54.0); HEMOGLOBIN 9.3 g/dL (13.5-17.5); IMMATURE GRANULOCYTES 0.5 % (0-5); LYMPHOCYTES 9.5 % (15-50); MCH 27.1 pg (26.0-34.0); MCHC 31.3 g/dL (31.0-37.0); MCV 86.6 fL (80.0-100.0); MEAN PLATELET VOLUME 10.4 fL (7.4-10.4); MONOCYTES 9.9 % (2-11); NEUTROPHILS 78.5 % (40-80); RBC 3.43 10x6/uL (4.20-6.10); RDW 13.9 % (11.5-14.5)
[2018-03-02 14:31] LABS: PLATELET COUNT 327 10x3/uL (130-400)
[2018-03-02 14:44] LABS: ALBUMIN 2.9 g/dL (3.4-5.0); ANION GAP 13.9 mmol/L (8-16); BILIRUBIN - TOTAL 0.44 mg/dL (0.2-1.3); C-REACTIVE PROTEIN 2.7 mg/dL (0.0-0.9); CALCIUM 10.6 mg/dL (8.5-10.1); CARBON DIOXIDE 27.7 mmol/L (21.0-32.0); CREATININE - SERUM 1.6 mg/dL (0.6-1.3); POTASSIUM - SERUM 3.6 mmol/L (3.5-5.1)
[2018-03-02 15:28] LABS: ERYTHROCYTE SEDIMENTATION RATE 66 mm/hr (0-20)
== END | disposition home or self-care (01) ==
LOC: D.LABREF 12:44
PROVIDERS: Emergency Medicine
DX: B99.9 Unspecified infectious disease (principal)

== ENCOUNTER → 2018-03-02 13:47 | Outpatient (CLI) | payer MEDICARE, OTHER ==
[2017-07-17 07:57] VITALS: BMI 46.5
== END | disposition home or self-care (01) ==
LOC: D.LABREF 13:47
DX: B99.9 Unspecified infectious disease (principal)

== ENCOUNTER → 2018-03-09 20:31 | Outpatient (CLI) | payer MEDICARE, OTHER ==
[2017-07-17 07:57] VITALS: BMI 46.5
[2018-03-09 21:27] LABS: BASOPHILS 0.1 % (0-2); HEMOGLOBIN 10.4 g/dL (13.5-17.5); IMMATURE GRANULOCYTES 0.4 % (0-5); LYMPHOCYTES 11.8 % (15-50); MCH 27.3 pg (26.0-34.0); MCHC 31.5 g/dL (31.0-37.0); MCV 86.6 fL (80.0-100.0); MEAN PLATELET VOLUME 10.5 fL (7.4-10.4); MONOCYTES 6.6 % (2-11); NEUTROPHILS 80.1 % (40-80); PLATELET COUNT 318 10x3/uL (130-400); RBC 3.81 10x6/uL (4.20-6.10); RDW 14.3 % (11.5-14.5); WBC 11.5 10x3/uL (4.8-10.8)
[2018-03-09 21:52] LABS: ALBUMIN 3.3 g/dL (3.4-5.0); ANION GAP 15.4 mmol/L (8-16); BILIRUBIN - TOTAL 0.34 mg/dL (0.2-1.3); C-REACTIVE PROTEIN 0.5 mg/dL (0.0-0.9); CALCIUM 9.6 mg/dL (8.5-10.1); CARBON DIOXIDE 25.5 mmol/L (21.0-32.0); POTASSIUM - SERUM 3.9 mmol/L (3.5-5.1); PROTEIN - SERUM 7.3 g/dL (6.4-8.2)
[2018-03-09 22:36] LABS: ERYTHROCYTE SEDIMENTATION RATE 24 mm/hr (0-20)
== END | disposition home or self-care (01) ==
LOC: D.LABREF 20:31
PROVIDERS: Emergency Medicine
DX: T84.53XA Infection and inflammatory reaction due to internal right knee prosthesis, initial encounter (principal)

== ENCOUNTER → 2018-04-27 12:24 | Outpatient (CLI) | payer MEDICARE, OTHER ==
[2017-07-17 07:57] VITALS: BMI 46.5
[2018-04-27 12:50] LABS: BASOPHILS 0.1 % (0-2); EOSINOPHILS 1.9 % (0-7); HEMATOCRIT 33.7 % (42.0-54.0); HEMOGLOBIN 10.5 g/dL (13.5-17.5); IMMATURE GRANULOCYTES 0.4 % (0-5); LYMPHOCYTES 13.8 % (15-50); MCH 26.4 pg (26.0-34.0); MCHC 31.2 g/dL (31.0-37.0); MCV 84.7 fL (80.0-100.0); MEAN PLATELET VOLUME 10.6 fL (7.4-10.4); MONOCYTES 7.4 % (2-11); NEUTROPHILS 76.4 % (40-80); PLATELET COUNT 280 10x3/uL (130-400); RBC 3.98 10x6/uL (4.20-6.10); RDW 15.4 % (11.5-14.5); WBC 9.3 10x3/uL (4.8-10.8)
[2018-04-27 13:16] LABS: ALBUMIN 3.3 g/dL (3.4-5.0); ANION GAP 11.6 mmol/L (8-16); BILIRUBIN - TOTAL 0.86 mg/dL (0.2-1.3); CALCIUM 10.1 mg/dL (8.5-10.1); CARBON DIOXIDE 30.3 mmol/L (21.0-32.0); CREATININE - SERUM 1.4 mg/dL (0.6-1.3); POTASSIUM - SERUM 3.9 mmol/L (3.5-5.1); PROTEIN - SERUM 6.8 g/dL (6.4-8.2)
== END | disposition home or self-care (01) ==
LOC: D.LABREF 12:24
PROVIDERS: Emergency Medicine
DX: T84.53XA Infection and inflammatory reaction due to internal right knee prosthesis, initial encounter (principal); Z51.81 Encounter for therapeutic drug level monitoring; Z79.2 Long term (current) use of antibiotics; N18.3 Chronic kidney disease, stage 3 (moderate)

== ENCOUNTER → 2018-05-04 15:28 | Outpatient (CLI) | payer MEDICARE, OTHER ==
[2017-07-17 07:57] VITALS: BMI 46.5
[2018-05-04 17:43] LABS: BASOPHILS 0.1 % (0-2); EOSINOPHILS 1.5 % (0-7); HEMATOCRIT 31.9 % (42.0-54.0); HEMOGLOBIN 9.9 g/dL (13.5-17.5); IMMATURE GRANULOCYTES 0.2 % (0-5); LYMPHOCYTES 14.7 % (15-50); MCH 26.5 pg (26.0-34.0); MCV 85.3 fL (80.0-100.0); NEUTROPHILS 75.5 % (40-80); PLATELET COUNT 226 10x3/uL (130-400); RBC 3.74 10x6/uL (4.20-6.10); RDW 16.5 % (11.5-14.5); WBC 8.2 10x3/uL (4.8-10.8)
[2018-05-04 18:19] LABS: ALBUMIN 3.1 g/dL (3.4-5.0); ALKALINE PHOSPHATASE 72 U/L (46-116); ALT (SGPT) 17 U/L (10-68); BILIRUBIN - TOTAL 0.49 mg/dL (0.2-1.3); CALC OSMOLALITY 292 mosm/kg (275-300); CALCIUM 9.6 mg/dL (8.5-10.1); CARBON DIOXIDE 26.9 mmol/L (21.0-32.0); CHLORIDE - SERUM 105 mmol/L (98-107); CREATININE - SERUM 1.6 mg/dL (0.6-1.3); GLUCOSE 99 mg/dL (74-106); PROTEIN - SERUM 6.9 g/dL (6.4-8.2); SODIUM 142 mmol/L (136-145); UREA NITROGEN 40 mg/dL (7-18); eGFR NON AFRICAN AMERICAN 46 mL/min (90-120)
== END | disposition home or self-care (01) ==
LOC: D.LABREF 15:28
PROVIDERS: Emergency Medicine
DX: T84.53XA Infection and inflammatory reaction due to internal right knee prosthesis, initial encounter (principal)

== ENCOUNTER → 2018-06-19 15:10 | Outpatient (CLI) | payer MEDICARE, OTHER ==
[2017-07-17 07:57] VITALS: BMI 46.5
[2018-06-19 15:30] LABS: BASOPHILS 0.1 % (0-2); EOSINOPHILS 2.1 % (0-7); HEMATOCRIT 35.5 % (42.0-54.0); HEMOGLOBIN 11.4 g/dL (13.5-17.5); IMMATURE GRANULOCYTES 0.4 % (0-5); LYMPHOCYTES 17.2 % (15-50); MCH 27.1 pg (26.0-34.0); MCHC 32.1 g/dL (31.0-37.0); MCV 84.5 fL (80.0-100.0); MEAN PLATELET VOLUME 10.4 fL (7.4-10.4); MONOCYTES 6.2 % (2-11); PLATELET COUNT 240 10x3/uL (130-400); RDW 16.4 % (11.5-14.5); WBC 7.1 10x3/uL (4.8-10.8)
[2018-06-19 15:51] LABS: ALBUMIN 3.5 g/dL (3.4-5.0); ALKALINE PHOSPHATASE 89 U/L (46-116); ALT (SGPT) 27 U/L (10-68); BILIRUBIN - TOTAL 0.54 mg/dL (0.2-1.3); CALC OSMOLALITY 286 mosm/kg (275-300); CALCIUM 9.1 mg/dL (8.5-10.1); CARBON DIOXIDE 31.6 mmol/L (21.0-32.0); CHLORIDE - SERUM 102 mmol/L (98-107); CREATININE - SERUM 1.4 mg/dL (0.6-1.3); GLUCOSE 106 mg/dL (74-106); SODIUM 141 mmol/L (136-145); UREA NITROGEN 29 mg/dL (7-18); eGFR NON AFRICAN AMERICAN 53 mL/min (90-120)
[2018-06-19 15:56] LABS: C-REACTIVE PROTEIN < 0.2 mg/dL (0.0-0.9)
[2018-06-19 17:36] LABS: ERYTHROCYTE SEDIMENTATION RATE 30 mm/hr (0-20)
== END | disposition home or self-care (01) ==
LOC: D.LABREF 15:10
PROVIDERS: Emergency Medicine
DX: T84.53XA Infection and inflammatory reaction due to internal right knee prosthesis, initial encounter (principal); Z51.81 Encounter for therapeutic drug level monitoring; Z79.2 Long term (current) use of antibiotics; N18.3 Chronic kidney disease, stage 3 (moderate)

== ENCOUNTER → 2019-04-12 11:28 | Outpatient (CLI) | payer MEDICARE, OTHER ==
[2017-07-17 07:57] VITALS: BMI 46.5
--- NOTE | ~2019-04-12 | HEMODYNAMI ---
PATIENT:GRECIA MARTINEZ MEDICAL RECORD: [id number] : 49 [id number] AD[facility]ION DATE: 04/12/19 Generatedon:04/12/201912:21 Patient name: GRECIA MARTINEZ Patient #: [id number] SSN: DO B: 1945 Date of study: 04/12/2019 Page: Of Hemodynamic Procedure Report Patient Data Patient Demographics Procedure consent was obtained First Name: GERCIA Gender: Male Last Name: JUAN : 1945 Middle Initial: E Age: 73 year(s) Patient #: [id number] Race: Unknown Additional ID: [id number] Contact details [address]: [address] [place] [address] [address] State: [place] City: [place] Zip code: [address] Past Medical History Allergies: No known allergies Admission Admission Data Admission Date: 04/12/2019 Admission Time: 11:28 Procedure Procedure Types Cath Procedure Peripheral Cath Diagnostic Procedure Clock Mechanic Peripheral Procedures Miscellaneous Aspiration/Injection (Joint) Procedure Description Procedure Date Procedure Date: 04/12/2019 Procedure Start Time: 12:06 Procedure Staff Name Function Aris Anderson MD Performing Physician Angie Melendez RT [facility] Procedure Data Cath Procedure Fluoroscopy Diagnostic fluoroscopy Total fluoroscopy Time: 0.5 time: 0.5 min min Diagnostic fluoroscopy Total fluoroscopy dose: 10 dose: 10 mGy mGy Hemodynamics Rest Pre Cath Intra NCS Post Cath Procedure Log Time Note 11:45:28 Time tracking: Regular hours (M-F 7:00 - 5:00) 11:45:29 Signed procedure consent form obtained from patient. 11:45:57 Patient received from Other to IR Alert and oriented. Tansferred to table in Supine position. 11:50:06 Pre-procedure instructions explained to patient. 11:50:07 Pre-op teaching completed and patient verbalized understanding. 12:03:17 Patient allergic to No known allergies 12:03:31 Right Knee was prepped with betadine and draped in sterile fashion. 12:03:38 Physician arrived 12:03:39 --------ALL STOP TIME OUT------ 12:03:40 Final Timeout: patient, procedure, and site verified with staff and physician. All members of the team are in agreement. 12:06:01 SAFE-T PLUS MYELOGRAM TRAY opened to sterile field. 12:06:07 Procedure started. 12:06:07 Full Disclosure recording started 12:06:16 Local anesthetic to Right Knee with Lidocaine 1% by Aris Anderson MD.INITIAL ACCESS ONLY 12:20:38 knee aspirated. 12:20:43 Procedure ended.(Physican Out) 12:20:53 Fluoroscopy time 00.50 minutes. 12:21:01 Fluoroscopy dose: 10 mGy 12:21:01 Flurop Dose total: 10 12:21:05 Procedure and supply charges have been captured, reviewed, submitted and are correct. Device Usage Item Name Manufacture Quantity Catalog Hospital Part Current Minimal Lot# / Number Charge Number Stock Stock Serial# Code SAFE-T [employer] 1 [id number] PLUS MYELOGRAM TRAY Signature Audit [place] Stage Time Signature Unsigned Intra-Procedure 04/12/2019 Angie Melendez 12:21:47 PM RT(R) [facility] [address] [place] [address]
[2019-04-12 13:20] LABS: PROTEIN - BODY FLUID 3.8 G/DL
[2019-04-12 15:41] LABS: MACROPHAGES BF 1 %; MESOTHELIALS BF 1 %; NEUT - BF 88 %
== END | disposition home or self-care (01) ==
LOC: D.RAD 11:28
PROVIDERS: General Practice; ATTEND Orthopaedic Surgery
DX: T84.51XA Infection and inflammatory reaction due to internal right hip prosthesis, initial encounter (principal)

== ENCOUNTER → 2019-04-13 11:40 | Outpatient (CLI) | payer MEDICARE, OTHER ==
[2017-07-17 07:57] VITALS: BMI 46.5
== END | disposition home or self-care (01) ==
LOC: D.HCCECHO 04-08 13:00
PROVIDERS: ATTEND Internal Medicine Cardiovascular Disease
DX: I35.9 Nonrheumatic aortic valve disorder, unspecified (principal)